=== PATIENT | female | born 1945 | race Caucasian/White ===

== ENCOUNTER → 2017-05-24 | Outpatient (CLI) | payer OTHER ==
[~2017-05-24] MED LIST: ALPR-411 PO; BNT10 PO; ENAL10TA88 PO; MELO7.5T5 PO; MOME50SP5; SERT-234 PO; TRAZ50TA35 PO; VNCLRX PO
--- NOTE | 2017-05-24 15:30 | MAMMOGRAPHY REPORT ---
BILATERAL DIGITAL SCREENING MAMMOGRAM TOMOSYNTHESIS WITH CAD: 05/24/2017 CLINICAL HISTORY: Routine screening. Patient has no complaints. TECHNIQUE: Breast tomosynthesis in addition to standard 2D mammography was performed. Current study was also evaluated with a Computer Aided Detection (CAD) system. COMPARISON: Comparison is made to exams dated: 05/22/2016 mammogram, 05/20/2015 mammogram, 05/19/2014 m ammogram, 07/20/2010 mammogram - [facility], 02/14/2009, and 01/27/2007. BREAST COMPOSITION: There are scattered areas of fibroglandular density in both breasts. FINDINGS: The parenchymal pattern is similar to prior mammograms. There are mild vascular calcifica tions and a few benign grouped calcifications in the breasts. No developing mass, architectural dist ortion or cluster of suspicious microcalcifications is seen. IMPRESSION: ACR BI-RADS CATEGORY 2: BENIGN There is no mammographic evidence of malignancy. A 1 year screening mammogram is recommended. The pa tient will receive written notification of the results. Approximately 10% of breast cancers are not detected with mammography. A negative mammographic report should not delay biopsy if a clinically suggestive mass is present. Soledad Valencia M.D. ay/:05/24/2017 13:42:47 Photographer'S Model: Layne FRENCH)(M), [facility] letter sent: Normal 1/2 BI-RADS Code: ACR BI-RADS Category 2: Benign
== END | disposition home or self-care (01) ==
LOC: C.MAMM 10:39
PROVIDERS: ATTEND Internal Medicine
DX: Z12.31 Encounter for screening mammogram for malignant neoplasm of breast (principal)

== ENCOUNTER → 2018-06-17 | Outpatient (CLI) | payer OTHER ==
--- NOTE | 2018-06-18 13:52 | MAMMOGRAPHY REPORT ---
BILATERAL DIGITAL SCREENING MAMMOGRAM TOMOSYNTHESIS WITH CAD: 06/17/2018 CLINICAL HISTORY: Routine screening. Patient has no complaints. TECHNIQUE: The study was acquired using full field digital technology and interpreted from soft copy. Breast tomosynthesis in addition to standard 2D mammography was performed. Current study was also ev aluated with a Computer Aided Detection (CAD) system. COMPARISON: Comparison is made to exams dated: 05/24/2017 mammogram, 05/22/2016 mammogram, 05/20/2015 m ammogram, 05/19/2014 mammogram, 07/20/2010 mammogram, and 08/26/2009 mammogram - [facility]. BREAST COMPOSITION: There are scattered areas of fibroglandular density in both breasts. FINDINGS: There are mild vascular calcifications in the breasts, and a few scattered benign coarse ca lcifications. Stable asymmetries in the middle one third of the left breast along the posterior nipp le line and slightly lateral to the posterior nipple line on the CC view. No suspicious mass, archite ctural distortion or cluster of microcalcifications is seen. IMPRESSION: ACR BI-RADS CATEGORY 1: NEGATIVE There is no mammographic evidence of malignancy. A 1 year screening mammogram is recommended.( 019) The patient will receive written notification of the results. Some breast cancers are not detected with mammography. A negative mammographic report should not katelyn y biopsy if a clinically suggestive mass is present. Soledad Valencia M.D. ay/:06/17/2018 22:00:38 Auditor/Quality: RT Canelo(R)(M), [facility] letter sent: Normal 1/2 BI-RADS Code: ACR BI-RADS Category 1: Negative
== END | disposition home or self-care (01) ==
LOC: C.MAMM 11:40
PROVIDERS: ATTEND Family Medicine
DX: Z12.31 Encounter for screening mammogram for malignant neoplasm of breast (principal)

== ENCOUNTER 2022-05-31 20:34 | Observation (INO) ==
[2022-05-31] MEDS ORDERED: ONDANSETRON INJ 2 MG/ML 2 ML VIAL IV STA (21:23)
--- NOTE | 2022-05-31 21:26 | ED Triage Note ---
Date of Service May 31, 2022 History of Present Illness This patient was briefly evaluated while in triage. An abbreviated physical exam was performed. This patient is a 76-year-old Female who presents to the ED for evaluation of vomiting, abdominal discomfort and constipation. Symptoms started yesterday. Physical Exam VITALS: Vitals are noted on the nurse's note and reviewed by myself. GENERAL: This is a 76-year-old female, ill-appearing, holding an emesis bucket and dry heaving. HEART: Regular rate and rhythm without murmurs gallops or rubs. LUNGS: Clear to auscultation bilaterally without wheezes, rales or rhonchi. ABDOMEN: Soft, generalized tenderness. NEURO: Patient was alert and oriented to person place and time. Initial orders for labs and / or imaging were placed and patient was placed in the waiting area until a bed is available. Please see further documentation for the full ED course.
[2022-05-31 21:46] LABS: Hematocrit (blood only) 38.5 % (34.1-44.9); Hemoglobin 13.1 g/dl (12.0-16.0); Mean Corpuscular Hemoglobin 34.7 pg (25.0-34.0); Mean Corpuscular Volume 101.9 fL (80.0-100.0); Mean Platelet Volume 9.7 fL (9.4-12.3); Platelet Count 287 K/uL (130-400); RDW Coefficient of Variation 12.1 % (11.5-14.5); RDW Standard Deviation 45.1 fL (36.4-46.3); Red Blood Count 3.78 M/uL (3.93-5.22); White Blood Count 20.32 K/ul (4.8-10.8)
[2022-05-31 22:01] LABS: Basophils # (auto) 0.05 K/uL (0-0.2); Basophils % (auto) 0.2 %; Eosinophils # (auto) 0.03 K/uL (0-0.50); Eosinophils % (auto) 0.1 %; Immature Granulocytes % (auto) 0.5 %; Lymphocytes # (auto) 0.74 K/uL (1.2-3.4); Lymphocytes % (auto) 3.6 %; Neutrophils % (auto) 92.6 %
[2022-05-31 22:08] LABS: Alanine Aminotransferase 15 U/L (7-52); Albumin Globulin Ratio 1.2 (0.9-2); Albumin Level 4.1 gm/dl (3.4-5.0); Alkaline Phosphatase 90 U/L (34-104); Anion Gap 7 (3-11); BUN Creatinine Ratio 19.5 (10-20); Bilirubin,Total 0.9 mg/dl (0.2-1.0); Blood Urea Nitrogen 17 mg/dl (6-23); Calcium 9.1 mg/dl (8.5-10.1); Carbon Dioxide 25 mmol/L (21-32); Chloride 98 mmol/L (98-107); Creatinine Clr Calc Pharmacy 50.3 ml/min; Est GFR (African American) 76.1 ml/min; Est GFR (Non-African American) 65.6 ml/min; Globulin 3.3 gm/dl (2.5-4.0); Glucose 131 mg/dl (70-99(Fasting)); Lipase 28 U/L (11-82); Sodium 130 mmol/L (136-145); Total Protein 7.4 gm/dl (6.0-8.3)
[2022-06-01] MEDS ORDERED: OPTIRAY 320 100ml IV ONE (00:22)
[2022-06-01] MEDS ORDERED: SODIUM CHLORIDE 0.9% 1000ML 1,000 ML IV ONE (01:29)
[2022-06-01] MEDS ORDERED: ACETAMINOPHEN 1,000 MG/100 ML VIAL IV STA (01:29)
--- NOTE | 2022-06-01 01:29 | Emergency Department Note ---
History of Present Illness General Chief complaint: Constipation Stated complaint: CONSTIPATION, VOMITING, NAUSEA Time Seen by Provider: 06/01/22 01:17 Source: patient Mode of arrival: ambulatory Limitations: no limitations History of Present Illness Provider complaint: Abdominal pain, constipation Onset (ago): day(s) 3 Location: abdomen Radiation: non-radiation Maximum Pain Intensity: 10 Quality: + constant Relieved By: + none Exacerbated By: + eating Associated symptoms: + loss of appetite and + nausea/vomiting; no chest pain, no fever/chills or no shortness of breath Treatments prior to arrival: other This is a 76-year-old female who presents due to concern for 3 days of constipation. Patient states she has a longstanding history of intermittent constipation and occasionally has to take medications. She states by this evening she had such discomfort and bloating from not having a bowel movement she took several [id number] medications including attempting an enema. She states by arrival here she began having bowel movements although they were loose. She denies any black or bloody stools. She states pain and bloating are slightly improved although she still feels very uncomfortable. She denies fevers, chills, however did have an episode of nausea vomiting at home prior to arrival. She denies any recent change in medications or diet. Pt seen during a time of high acuity and national emergency pandemic while wearing PPE. Home Medications Medication Instructions Recorded Confirmed Type alprazolam 1 mg tablet 0.5 mg PO HS ##0 06/12/11 06/01/22 History aspirin 81 mg tablet,delayed 81 mg PO QAM 08/20/18 06/01/22 History release (Rosemary Low Dose Aspirin) trazodone 50 mg tablet 100 mg PO HS 10/22/18 06/01/22 History bupropion HCl 300 mg 24 hr tablet, 300 mg PO DAILY 10/06/19 06/01/22 History extended release conjugated estrogens 0.625 mg/gram 0.625 mg vaginal DAILY 10/06/19 06/01/22 History vaginal cream (Premarin) losartan 25 mg tablet 50 mg PO BID 10/06/19 06/01/22 History mirabegron 50 mg tablet,extended 50 mg PO DAILY 10/06/19 06/01/22 History release 24 hr (Myrbetriq) Pataday 1 drp OPB DAILY 06/01/22 06/01/22 History Valtrex 500 mg PO DAILY 06/01/22 06/01/22 History amlodipine 5 mg tablet 5 mg PO 1XD 06/01/22 06/01/22 History atorvastatin 40 mg tablet 40 mg PO ONCE HS 06/01/22 06/01/22 History carvedilol 6.25 mg tablet 6.25 mg PO 1XD 06/01/22 06/01/22 History fluticasone propionate 50 mcg intranasal (ALT) BID 06/01/22 06/01/22 History meloxicam 15 mg tablet 15 mg PO DAILY 06/01/22 06/01/22 History montelukast 10 mg PO DAILY 06/01/22 06/01/22 History pantoprazole 40 mg tablet,delayed 40 mg PO 1XD 06/01/22 06/01/22 History release Allergies Allergy/AdvReac Type Severity Reaction Status Date / Time codeine AdvReac Unknown NAUSEA Verified 12/02/18 09:43 Past Med/Surg History Medical History (Updated 06/02/22 @ 21:38 by Margarita Andrade DO) Anxiety Colitis Depression GERD (gastroesophageal reflux disease) HTN (hypertension) Osteoarthritis Surgical History Cataract extraction status of right eye History of total abdominal hysterectomy and bilateral salpingo-oophorectomy repair of bladder History of total knee replacement right Hx of colonoscopy Hx of tubal ligation Family History Father Family history of diabetes mellitus Social History Smoking Status: Never smoker Second Hand Exposure: No; Hx Alcohol Use: No Hx Substance Use: No Preferred Language: Wolof Communication Ability: Effective 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: No Beliefs That Will Affect Care: None Current Living Situation: Alone Feels Safe at Home: Yes Safety Concerns: Feels Safe At This Time Assistive Devices: Glasses Review of Systems A total of 10 systems reviewed and were otherwise negative All systems reviewed & are unremarkable except as noted in HPI & below Physical Exam Vital Signs Vital Signs - 24 hr 05/31/22 21:20 06/01/22 01:12 06/01/22 02:31 Temperature 36.8 C Temperature Source Temporal Artery Scan Pulse Rate 84 Pulse Rate [Finger] 82 74 Respiratory Rate 20 20 16 Respiratory Effort / Characteristics Non-Labored Spontaneous Non-Labored Spontaneous Respiratory Depth Normal Normal Respiratory Pattern Regular Blood Pressure 126/65 Blood Pressure [Right Arm] 165/93 H 146/88 H Blood Pressure Mean 85 Blood Pressure Mean [Right Arm] 117 107 Blood Pressure Position Sitting Pulse Oximetry 97 93 95 Oxygen Delivery Method Room Air Room Air Room Air Sepsis Recent Fever Within 48 Hours No Sepsis New/Unexplained Change in Mental Status N/A Sepsis Action Taken by Nursing No Action Required GENERAL: alert, well appearing, well nourished, no distress, non-toxic EYE EXAM: normal conjunctiva, PERRL and EOM's grossly intact OROPHARYNX: no exudate, no erythema, lips, buccal mucosa, and tongue normal and mucous membranes are moist NECK: supple, no nuchal rigidity, no adenopathy, non-tender LUNGS: Clear to auscultation. Normal chest wall mechanics, no w/r/r HEART: no murmurs, S1 normal and S2 normal ABDOMEN: abdomen soft, mild lower abdominal tenderness with palpation, normo- active bowel sounds, no masses, no rebound or guarding. Dull to percussion. BACK: Back is symmetrical on inspection and there is no deformity, no midline tenderness, no CVA tenderness. SKIN: no rashes and no bruising UPPER EXTREMITIES: upper extremities are grossly normal. FROM, nml pulses b/l. LOWER EXTREMITIES: No pitting edema. FROM, nml pulses b/l. NEURO EXAM: Normal sensorium, cranial nerves II-XII grossly intact, normal speech, no gross weakness of arms, no gross weakness of legs. Gross sensation intact. Course Administered Medications Alprazolam (Alprazolam 0.5 Mg Tablet) 0.5 mg PO BID PRN PRN Reason: Anxiety Stop: 07/01/22 06:53 Last Admin: 06/02/22 21:21 Dose: 0.5 mg Documented By: Admin: 06/01/22 22:10 Dose: 0.5 mg Documented By: RONEN Amlodipine Besylate (Amlodipine Besylate 5 Mg Tab) 5 mg PO QAM [facility] Stop: 07/01/22 08:59 Last Admin: 06/02/22 08:59 Dose: 5 mg Documented By: Admin: 06/01/22 09:24 Dose: 5 mg Documented By: OSCAR Aspirin (Aspirin 81 Mg Ectab) [facility] [place] Stop: 07/01/22 08:59 Last Admin: 06/02/22 09:10 Dose: 81 mg Documented By: Admin: 06/01/22 09:50 Dose: 81 mg Documented By: OSCAR Atorvastatin Calcium (Atorvastatin 40 Mg Tab) 40 mg PO QAM [facility] Stop: 07/01/22 08:59 Last Admin: 06/02/22 08:59 Dose: 40 mg Documented By: Admin: 06/01/22 09:47 Dose: 40 mg Documented By: OSCAR Bupropion HCl (Bupropion Xl 300 Mg Tabcr) [facility] [place] Stop: 07/01/22 08:59 Last Admin: 06/02/22 09:00 Dose: 300 mg Documented By: Admin: 06/01/22 09:18 Dose: 300 mg Documented By: OSCAR Carvedilol (Carvedilol 6.25 Mg Tab) 6.25 mg PO BID [facility] Stop: 07/01/22 08:59 Last Admin: 06/02/22 21:22 Dose: 6.25 mg Documented By: Admin: 06/02/22 09:00 Dose: 6.25 mg Documented By: Admin: 06/01/22 22:02 Dose: 6.25 mg Documented By: Admin: 06/01/22 09:17 Dose: 6.25 mg Documented By: OSCAR Ciprofloxacin (Ciprofloxacin 500 Mg Tab) 500 mg PO BID [facility] Stop: 06/12/22 20:59 Last Admin: 06/02/22 21:22 Dose: 500 mg Documented By: RONEN Enoxaparin Sodium (Enoxaparin Inj 40 Mg/0.4 Ml Syr) 40 [facility]Q [facility] [place] Stop: 07/01/22 08:59 Last Admin: 06/02/22 09:00 Dose: 40 mg Documented By: Admin: 06/01/22 09:17 Dose: 40 mg Documented By: OSCAR Fluticasone Propionate (Fluticasone Propionate Na Spr 16 Gm Btl) 2 sprays NA DAILY [facility] Stop: 07/01/22 08:59 Last Admin: 06/02/22 09:00 Dose: 2 sprays Documented By: Admin: 06/01/22 09:19 Dose: 2 sprays Documented By: OSCAR Losartan Potassium (Losartan Potassium 50 Mg Tab) 50 mg PO BID [facility] Stop: 07/01/22 08:59 Last Admin: 06/02/22 21:23 Dose: 50 mg Documented By: Admin: 06/02/22 09:00 Dose: 50 mg Documented By: Admin: 06/01/22 22:02 Dose: 50 mg Documented By: Admin: 06/01/22 09:18 Dose: 50 mg Documented By: OSCAR Metronidazole (Metronidazole 500 Mg Tab) 500 mg PO Q8 EZ Stop: 06/12/22 12:29 Last Admin: 06/02/22 21:24 Dose: 500 mg Documented By: Admin: 06/02/22 12:50 Dose: 500 mg Documented By: PRESTON Mirabegron (Mirabegron Er 25 Mg Tab) 50 mg PO DAILY EZ Stop: 07/01/22 08:59 Last Admin: 06/02/22 09:00 Dose: 50 mg Documented By: Admin: 06/01/22 09:18 Dose: 50 mg Documented By: OSCAR Miscellaneous (Pataday: Order Awaiting Action) 1 each N/A QS EZ Stop: 07/01/22 07:59 Last Admin: 06/02/22 15:26 Dose: Not Given Documented By: Admin: 06/02/22 07:39 Dose: Not Given Documented By: Admin: 06/02/22 00:17 Dose: Not Given Documented By: Admin: 06/01/22 16:41 Dose: Not Given Documented By: Admin: 06/01/22 07:44 Dose: Not Given Documented By: OSCAR Montelukast Sodium (Montelukast Sodium 10 Mg Tablet) 10 mg PO DAILY EZ Stop: 07/02/22 08:59 Last Admin: 06/02/22 09:05 Dose: 10 mg Documented By: PRESTON Pantoprazole Sodium (Pantoprazole 40 Mg Tab) 40 mg PO DAILY EZ Stop: 07/01/22 08:59 Last Admin: 06/02/22 09:00 Dose: 40 mg Documented By: Admin: 06/01/22 09:24 Dose: 40 mg Documented By: OSCAR Petrolatum (Butt Paste (Zinc Oxide 16%) 171 Appln/57 Gm Jar) 1 appln EXT BID EZ Stop: 07/02/22 12:14 Last Admin: 06/02/22 21:24 Dose: 1 appln Documented By: Admin: 06/02/22 12:50 Dose: 1 appln Documented By: PRESTON Trazodone HCl (Trazodone Hcl 100 Mg Tab) 100 mg PO HS EZ Stop: 07/01/22 20:59 Last Admin: 06/02/22 21:24 Dose: 100 mg Documented By: Admin: 06/01/22 22:03 Dose: 100 mg Documented By: RONEN Valacyclovir HCl (Valacyclovir Hcl 500 Mg Tablet) 500 mg PO DAILY EZ Stop: 07/01/22 08:59 Last Admin: 06/02/22 09:00 Dose: 500 mg Documented By: Admin: 06/01/22 09:18 Dose: 500 mg Documented By: NMS Discontinued Medications Sodium Chloride (Nss 1000ml) 1,000 mls @ 999 mls/hr IV .Q1H1M ONE Stop: 06/01/22 02:29 Last Infusion: 06/01/22 03:22 Dose: 0 mls/hr Documented By: Admin: 06/01/22 01:38 Dose: 999 mls/hr Documented By: CHANCE Acetaminophen (Ofirmev) 1,000 mg in 100 mls @ 400 mls/hr IV NOW STA Stop: 06/01/22 01:43 Last Infusion: 06/01/22 02:26 Dose: 0 mls/hr Documented By: Admin: 06/01/22 01:38 Dose: 400 mls/hr Documented By: CHANCE Piperacillin Sod/Tazobactam Sod (Zosyn) 4.5 gm in 120 mls @ 240 mls/hr IV NOW ONE Stop: 06/01/22 04:16 Last Infusion: 06/01/22 04:42 Dose: 0 mls/hr Documented By: Admin: 06/01/22 03:54 Dose: 240 mls/hr Documented By: CHANCE Metronidazole (Flagyl) 500 mg in 100 mls @ 100 mls/hr IV NOW STA Stop: 06/01/22 05:32 Last Infusion: 06/01/22 06:19 Dose: 0 mls/hr Documented By: Admin: 06/01/22 05:12 Dose: 100 mls/hr Documented By: CHANCE Lactated Ringer's (Lr) 1,000 mls @ 60 mls/hr IV .[id number] STA Stop: 06/01/22 21:29 Last Infusion: 06/01/22 09:18 Dose: 0 mls/hr Documented By: Admin: 06/01/22 05:12 Dose: 60 mls/hr Documented By: CHANCE Piperacillin Sod/Tazobactam (Sod 3.375 gm/ Dextrose) 115 mls @ 28.75 mls/hr IV Q8H EZ; Protocol Stop: 06/11/22 08:59 Last Infusion: 06/02/22 12:32 Dose: 0 mls/hr Documented By: Admin: 06/02/22 08:59 Dose: 28.8 mls/hr Documented By: Infusion: 06/02/22 05:03 Dose: 0 mls/hr Documented By: Admin: 06/02/22 01:03 Dose: 28.8 mls/hr Documented By: Infusion: 06/01/22 22:04 Dose: 0 mls/hr Documented By: Admin: 06/01/22 18:10 Dose: 28.8 mls/hr Documented By: Infusion: 06/01/22 13:47 Dose: 0 mls/hr Documented By: Admin: 06/01/22 09:18 Dose: 28.8 mls/hr Documented By: OSCAR Ioversol (Optiray 320 100ml) 100 ml IV ONCE ONE Stop: 06/01/22 00:23 Last Admin: 06/01/22 00:23 Dose: 93 ml Documented By: NORRIS Montelukast Sodium (Montelukast Sodium 10 Mg Tablet) 10 mg PO HS EZ Stop: 07/01/22 20:59 Last Admin: 06/01/22 22:03 Dose: Not Given Documented By: RONEN Ondansetron HCl (Ondansetron Inj 2 Mg/Ml 2 Ml Vial) 4 mg IV NOW STA Stop: 05/31/22 21:24 Last Admin: 05/31/22 21:41 Dose: 4 mg Documented By: GHADA Medical Decision Making Differential Diagnosis Differential diagnoses includes but is not limited to gastritis, peptic ulcer disease, GERD, gallbladder disease, pancreatitis, small bowel obstruction, acute coronary syndrome, pericarditis, ischemic bowel, irritable bowel disease, irritable bowel syndrome, appendicitis, diverticulitis, malignancy, hernia, urinary tract infection, torsion, [/ectopic (if female)], perforation, trauma, infectious. Medical Records Attestation: I reviewed the patient's medical records. Home Medications Current Medication List: was personally reviewed by me Laboratory Data Attestation: I reviewed the patient's lab results. Result diagrams: 06/02/22 06:34 06/02/22 06:34 Lab Results 05/31/22 05/31/22 06/01/22 Range/Units 21:39 21:39 00:58 WBC 20.32 H (4.8-10.8) K/ul RBC 3.78 L (3.93-5.22) M/uL Hgb 13.1 (12.0-16.0) g/dl Hct 38.5 (34.1-44.9) % MCV 101.9 H (80.0-100.0) fL MCH 34.7 H (25.0-34.0) pg MCHC 34.0 (32.0-36.0) g/dL RDW Std Deviation 45.1 (36.4-46.3) fL RDW Coeff of Hollis 12.1 (11.5-14.5) % Plt Count 287 (130-400) K/uL MPV 9.7 (9.4-12.3) fL Immature Gran % (Auto) 0.5 % Neut % (Auto) 92.6 % Lymph % (Auto) 3.6 % [place] % (Auto) 3.0 % Eos % (Auto) 0.1 % Baso % (Auto) 0.2 % Neut # (Auto) 18.80 H (1.4-6.5) K/uL Lymph # (Auto) 0.74 L (1.2-3.4) K/uL [place] # (Auto) 0.60 (0.24-0.82) K/uL Eos # (Auto) 0.03 (0-0.50) K/uL Baso # (Auto) 0.05 (0-0.2) K/uL Immature Gran # (Auto) 0.10 H (0.00-0.02) K/uL Sodium 130 L (136-145) mmol/L Potassium TNP 3.7 Chloride 98 (98-107) mmol/L Carbon Dioxide 25 (21-32) mmol/L Anion Gap 7 (3-11) BUN 17 (6-23) mg/dl Creatinine 0.87 (0.6-1.2) mg/dl Est Cr Clr Drug Dosing 50.3 ml/min Est GFR ( Amer) 76.1 ml/min Est GFR (Non-Af Amer) 65.6 ml/min BUN/Creatinine Ratio 19.5 (10-20) Glucose 131 H (70-99(Fasting)) mg/dl Calcium 9.1 (8.5-10.1) mg/dl Magnesium 2.2 (1.7-2.4) mg/dl Total Bilirubin 0.9 (0.2-1.0) mg/dl AST TNP 18 ALT 15 (7-52) U/L Alkaline Phosphatase 90 (34-104) U/L Total Protein 7.4 (6.0-8.3) gm/dl Albumin 4.1 (3.4-5.0) gm/dl Globulin 3.3 (2.5-4.0) gm/dl Albumin/Globulin Ratio 1.2 (0.9-2) Lipase 28 (11-82) U/L Procalcitonin (0-0.5) ng/ml Urine Color Urine Appearance (Clear) Urine pH (4.5-7.5) Ur Specific [place] (1.000-1.030) Urine Protein (Negative) Urine Glucose (UA) (Negative) Urine Ketones (Negative) Urine Blood (Negative) Urine Nitrite (Negative) Urine Bilirubin (Negative) Urine Urobilinogen (Negative) Ur Leukocyte Esterase (Negative) SARS-CoV-2, RNA, NAAT (NEGATIVE) 06/01/22 06/01/22 06/01/22 Range/Units 01:58 02:55 02:55 WBC 20.85 H (4.8-10.8) K/ul RBC 3.65 L (3.93-5.22) M/uL Hgb 12.6 (12.0-16.0) g/dl Hct 37.4 (34.1-44.9) % MCV 102.5 H (80.0-100.0) fL MCH 34.5 H (25.0-34.0) pg MCHC 33.7 (32.0-36.0) g/dL RDW Std Deviation 45.9 (36.4-46.3) fL RDW Coeff of Hollis 12.2 (11.5-14.5) % Plt Count 282 (130-400) K/uL MPV 10.1 (9.4-12.3) fL Immature Gran % (Auto) 0.8 % Neut % (Auto) 93.3 % Lymph % (Auto) 2.3 % [place] % (Auto) 3.4 % Eos % (Auto) 0.0 % Baso % (Auto) 0.2 % Neut # (Auto) 19.48 H (1.4-6.5) K/uL Lymph # (Auto) 0.47 L (1.2-3.4) K/uL [place] # (Auto) 0.70 (0.24-0.82) K/uL Eos # (Auto) 0.00 (0-0.50) K/uL Baso # (Auto) 0.04 (0-0.2) K/uL Immature Gran # (Auto) 0.16 H (0.00-0.02) K/uL Sodium (136-145) mmol/L Potassium Chloride (98-107) mmol/L Carbon Dioxide (21-32) mmol/L Anion Gap (3-11) BUN (6-23) mg/dl Creatinine (0.6-1.2) mg/dl Est Cr Clr Drug Dosing ml/min Est GFR ( Amer) ml/min Est GFR (Non-Af Amer) ml/min BUN/Creatinine Ratio (10-20) Glucose (70-99(Fasting)) mg/dl Calcium (8.5-10.1) mg/dl Magnesium (1.7-2.4) mg/dl Total Bilirubin (0.2-1.0) mg/dl AST ALT (7-52) U/L Alkaline Phosphatase (34-104) U/L Total Protein (6.0-8.3) gm/dl Albumin (3.4-5.0) gm/dl Globulin (2.5-4.0) gm/dl Albumin/Globulin Ratio (0.9-2) Lipase (11-82) U/L Procalcitonin 0.86 H (0-0.5) ng/ml Urine Color Dark Yellow Urine Appearance Clear (Clear) Urine pH 6.0 (4.5-7.5) Ur Specific [place] > 1.045 H (1.000-1.030) Urine Protein Negative (Negative) Urine Glucose (UA) Negative (Negative) Urine Ketones Trace H (Negative) Urine Blood Negative (Negative) Urine Nitrite Negative (Negative) Urine Bilirubin 1+ H (Negative) Urine Urobilinogen Negative (Negative) Ur Leukocyte Esterase Negative (Negative) SARS-CoV-2, RNA, NAAT (NEGATIVE) 06/01/22 Range/Units 04:43 WBC (4.8-10.8) K/ul RBC (3.93-5.22) M/uL Hgb (12.0-16.0) g/dl Hct (34.1-44.9) % MCV (80.0-100.0) fL MCH (25.0-34.0) pg MCHC (32.0-36.0) g/dL RDW Std Deviation (36.4-46.3) fL RDW Coeff of Hollis (11.5-14.5) % Plt Count (130-400) K/uL MPV (9.4-12.3) fL Immature Gran % (Auto) % Neut % (Auto) % Lymph % (Auto) % [place] % (Auto) % Eos % (Auto) % Baso % (Auto) % Neut # (Auto) (1.4-6.5) K/uL Lymph # (Auto) (1.2-3.4) K/uL [place] # (Auto) (0.24-0.82) K/uL Eos # (Auto) (0-0.50) K/uL Baso # (Auto) (0-0.2) K/uL Immature Gran # (Auto) (0.00-0.02) K/uL Sodium (136-145) mmol/L Potassium Chloride (98-107) mmol/L Carbon Dioxide (21-32) mmol/L Anion Gap (3-11) BUN (6-23) mg/dl Creatinine (0.6-1.2) mg/dl Est Cr Clr Drug Dosing ml/min Est GFR ( Amer) ml/min Est GFR (Non-Af Amer) ml/min BUN/Creatinine Ratio (10-20) Glucose (70-99(Fasting)) mg/dl Calcium (8.5-10.1) mg/dl Magnesium (1.7-2.4) mg/dl Total Bilirubin (0.2-1.0) mg/dl AST ALT (7-52) U/L Alkaline Phosphatase (34-104) U/L Total Protein (6.0-8.3) gm/dl Albumin (3.4-5.0) gm/dl Globulin (2.5-4.0) gm/dl Albumin/Globulin Ratio (0.9-2) Lipase (11-82) U/L Procalcitonin (0-0.5) ng/ml Urine Color Urine Appearance (Clear) Urine pH (4.5-7.5) Ur Specific [place] (1.000-1.030) Urine Protein (Negative) Urine Glucose (UA) (Negative) Urine Ketones (Negative) Urine Blood (Negative) Urine Nitrite (Negative) Urine Bilirubin (Negative) Urine Urobilinogen (Negative) Ur Leukocyte Esterase (Negative) SARS-CoV-2, RNA, NAAT NEGATIVE (NEGATIVE) Imaging Data Radiologist's Impression: CT abdomen and pelvis with contrast: Comparison: CT abdomen and pelvis 10/28/2016. Constipation. Wall thickening and pericolic fat stranding in the left colon suggesting colitis. Sigmoid diverticulosis. Inflammatory changes in this region are favored to be due to left hemicolitis, but a component of diverticulitis cannot be completely excluded. No bowel obstruction. Appendix not identified. Liver, gallbladder, spleen, pancreas, adrenal glands are unremarkable. Symmetric renal enhancement. No hydronephrosis. Right kidney cyst. No aortic aneurysm. Hysterectomy. Normal bladder. No acute osseous findings. Radiologist: Darleen Oscar MD ECG Data Attestation: I personally reviewed and interpreted this ECG as follows: Indication: + abdominal pain Rate (beats per minute): 78 Rhythm: + normal sinus ECG Intervals/blocks: + Normal QRS and + Normal QT ECG [place]: + Normal ECG ST segments: + Nonspecific ST abnormalities MDM Narrative An order was placed for continuous cardiac monitoring. The monitor shows a rate of _77_ with _normal sinus_ rhythm. THis is a 76 yo female who presents with abdominal pain, n/v and diarrhea. She denies sick contacts or change in diet. Denied concern for food borne illness. No med change. She has previously had c.diff but no recent antibiotics. Labs sent prior to my evaluation by nursing staff which revealed significant leukocytosis. Initially thought to be reactive from vomiting and diarrhea, patient fently rehydrated with IVF, given meds for nausea and pain. CT scan revealed colitis and possible evolving diverticulitis. Repeat CBC and procal added which revealed persistent leukocytosis and elevated procal. Patient given IV zosyn. We discussed concern for findings on labs and imaging and unclear etiology at this time. Stool culture pending. Patient made aware of all results and verbalized understanding and was in agreement with the plan. CAse discussed with the hospitalist. Patient re-examined several times, no worsening pain, abd soft with mild lower abd tenderness with palpation. No evidence of peritonitis. Impression & Plan Abdominal pain, Colitis, Diverticulitis, Leukocytosis Discharge Plan Visit Data Chief Complaint: Constipation Stated Complaint: CONSTIPATION, VOMITING, NAUSEA ED Provider: Margarita Andrade Discharge Problem: Abdominal pain, Colitis, Diverticulitis, Leukocytosis Patient Disposition: Admitted As Inpatient Discharge Instructions Interventions: ED Discharge Assessment Last Done: 06/01/22 06:58
[2022-06-01 01:31] LABS: Potassium 3.7 mmol/L (3.5-5.1)
[2022-06-01 02:15] LABS: Appearance Urine Clear (Clear); Blood Urine Negative (Negative); Color Urine Dark Yellow; Glucose Urine UA Negative (Negative); Ketones Urine Trace (Negative); Leukocyte Esterase Urine Negative (Negative); Nitrite Urine Negative (Negative); Protein Urine Negative (Negative); Specific Gravity Urine > 1.045 (1.000-1.030); Urobilinogen Urine Negative (Negative)
[2022-06-01 02:22] LABS: Bilirubin Urine 1+ (Negative)
[2022-06-01 03:18] LABS: Hematocrit (blood only) 37.4 % (34.1-44.9); Hemoglobin 12.6 g/dl (12.0-16.0); Mean Corpuscular Hemoglobin 34.5 pg (25.0-34.0); Mean Corpuscular Hgb Conc 33.7 g/dL (32.0-36.0); Mean Corpuscular Volume 102.5 fL (80.0-100.0); Mean Platelet Volume 10.1 fL (9.4-12.3); Platelet Count 282 K/uL (130-400); RDW Coefficient of Variation 12.2 % (11.5-14.5); RDW Standard Deviation 45.9 fL (36.4-46.3); Red Blood Count 3.65 M/uL (3.93-5.22); White Blood Count 20.85 K/ul (4.8-10.8)
[2022-06-01 03:44] LABS: Basophils # (auto) 0.04 K/uL (0-0.2); Basophils % (auto) 0.2 %; Immature Granulocytes # (auto) 0.16 K/uL (0.00-0.02); Immature Granulocytes % (auto) 0.8 %; Lymphocytes # (auto) 0.47 K/uL (1.2-3.4); Lymphocytes % (auto) 2.3 %; Monocytes % (auto) 3.4 %; Neutrophils # (auto) 19.48 K/uL (1.4-6.5); Neutrophils % (auto) 93.3 %
[2022-06-01] MEDS ORDERED: PIPERACILLIN/TAZOBACTAM 4.5 GM/120 ML BAG IV ONE (03:47)
[2022-06-01] MEDS ORDERED: metroNIDAZOLE 500 MG/100 ML BAG IV STA (04:33)
--- NOTE | 2022-06-01 04:43 | History & Physical Report ---
Date of Service June 01, 2022 Assessment & Plan (1) Abdominal pain: Plan: Colitis versus diverticulitis on initial CT read Rule out recurrent C. difficile given antibiotic intake history Possible sepsis given elevated procalcitonin hypertension, stable hyperlipidemia on statin Rx GERD, stable on regimen anxiety/mood disorder, at baseline hypothyroidism, euthyroid as of recent outpatient TSH prediabetes, outpatient hemoglobin A1c of 5.8 last December 2021 GMF CS. Zosyn Bowel rest Follow CT abdomen pelvis official read GI consult if diverticulitis found on official CT read stool C. difficile Flagyl 1 dose for now for presumptive C. difficile given leukocytosis; oral vancomycin if C. difficile positive DVT prophylaxis. Lovenox subcu Full code Text document was generated using [employer] voice recognition software. It may contain grammatical or spelling errors. Kindly contact undersigned for clarification of any documentation item in question. History of Present Illness Chief Complaint: Abdominal pain Primary Care Provider: Raman Elder DO History obtained from patient and records. Medical history significant for hypertension, hyperlipidemia IBS, GERD, anxiety/mood disorders, hypothyroidism, HSV on Valtrex prophylaxis, diverticulosis, history C. difficile, prediabetes. 3 days history of achy lower abdominal pain more on the right associated with nausea, emesis. No fever, no chills. Initial constipation followed by watery stools after laxative intake. Patient denies chest pain, SOB. Recent Bactrim course for UTI 2 months ago. IV Zosyn administered at the ER. 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 Allergies Allergy/AdvReac Type Severity Reaction Status Date / Time codeine AdvReac Unknown NAUSEA Verified 12/02/18 09:43 Home Medications Medication Instructions Recorded Confirmed Type alprazolam 1 mg tablet 0.5 mg PO HS ##0 06/12/11 10/06/19 History aspirin 81 mg tablet,delayed 81 mg PO QAM 08/20/18 10/06/19 History release (Rosemary Low Dose Aspirin) trazodone 50 mg tablet 100 mg PO HS 10/22/18 10/06/19 History bupropion HCl 300 mg 24 hr tablet, 300 mg PO DAILY 10/06/19 10/06/19 History extended release conjugated estrogens 0.625 mg/gram 0.625 mg vaginal DAILY 10/06/19 10/06/19 History vaginal cream (Premarin) losartan 25 mg tablet 50 mg PO BID 10/06/19 10/06/19 History mirabegron 50 mg tablet,extended 50 mg PO DAILY 10/06/19 10/06/19 History release 24 hr (Myrbetriq) Pataday 1 drp OPB DAILY 06/01/22 06/01/22 History Valtrex 500 mg PO DAILY 06/01/22 06/01/22 History amlodipine 5 mg tablet mg 06/01/22 History atorvastatin 40 mg tablet mg 06/01/22 History carvedilol 6.25 mg tablet mg 06/01/22 History fluticasone propionate 06/01/22 History meloxicam 15 mg tablet mg PO DAILY 06/01/22 History montelukast 10 mg PO 06/01/22 History pantoprazole 40 mg tablet,delayed mg PO 06/01/22 History release Past Med/Surg History Medical History (Updated 06/01/22 @ 04:19 by Margarita Andrade DO) Anxiety Colitis Depression GERD (gastroesophageal reflux disease) HTN (hypertension) Osteoarthritis Surgical History Cataract extraction status of right eye History of total abdominal hysterectomy and bilateral salpingo-oophorectomy repair of bladder History of total knee replacement right Hx of colonoscopy Hx of tubal ligation Family History Father Family history of diabetes mellitus Social History Smoking Status: Never smoker Second Hand Exposure: No; Hx Alcohol Use: No Hx Substance Use: No Preferred Language: Tanzanian Communication Ability: Effective Immigration Specialist Required: No Beliefs That Will Affect Care: None Current Living Situation: Alone Feels Safe at Home: Yes Assistive Devices: Glasses Review of Systems Review of Systems: As per HPI, all other systems reviewed and negative Physical Exam Physical Exam: GENERAL: Comfortable, slightly anxious, pleasant, no respiratory distress SKIN: Normal color, warm HEENT: [place] palpebral conjunctivae, no ptosis, dry buccal mucosa NECK : Supple, no tenderness CHEST : CTA, no tenderness HEART : RRR, no obvious murmurs ABDOMEN: Some distention, epigastric tenderness EXTREMITIES : Minimal LE swelling, no LE tenderness, no other conspicuous deformities noted NEUROLOGIC : Coherent, no facial asymmetry, no other gross focality Results & Data Results & Data ([facility]) Vital Signs (Past 12 Hours) Vital Signs Temp Pulse Pulse Resp BP BP Pulse Ox 06/01/22 02:31 74 16 146/88 H 95 06/01/22 01:12 82 20 165/93 H 93 05/31/22 21:20 36.8 C 84 20 126/65 97 O2 Del Method 06/01/22 02:31 Room Air 06/01/22 01:12 Room Air 05/31/22 21:20 Room Air Laboratory Results Laboratory Results WBC 20.85 K/ul (4.8-10.8) H 06/01/22 02:55 RBC 3.65 M/uL (3.93-5.22) L 06/01/22 02:55 Hgb 12.6 g/dl (12.0-16.0) 06/01/22 02:55 Hct 37.4 % (34.1-44.9) 06/01/22 02:55 MCV 102.5 fL (80.0-100.0) H 06/01/22 02:55 MCH 34.5 pg (25.0-34.0) H 06/01/22 02:55 MCHC 33.7 g/dL (32.0-36.0) 06/01/22 02:55 RDW Std Deviation 45.9 fL (36.4-46.3) 06/01/22 02:55 RDW Coeff of [place] 12.2 % (11.5-14.5) 06/01/22 02:55 Plt Count 282 K/uL (130-400) 06/01/22 02:55 MPV 10.1 fL (9.4-12.3) 06/01/22 02:55 Immature Gran % (Auto) 0.8 % 06/01/22 02:55 Neut % (Auto) 93.3 % 06/01/22 02:55 Lymph % (Auto) 2.3 % 06/01/22 02:55 [place] % (Auto) 3.4 % 06/01/22 02:55 Eos % (Auto) 0.0 % 06/01/22 02:55 Baso % (Auto) 0.2 % 06/01/22 02:55 Neut # (Auto) 19.48 K/uL (1.4-6.5) H 06/01/22 02:55 Lymph # (Auto) 0.47 K/uL (1.2-3.4) L 06/01/22 02:55 [place] # (Auto) 0.70 K/uL (0.24-0.82) 06/01/22 02:55 Eos # (Auto) 0.00 K/uL (0-0.50) 06/01/22 02:55 Baso # (Auto) 0.04 K/uL (0-0.2) 06/01/22 02:55 Immature Gran # (Auto) 0.16 K/uL (0.00-0.02) H 06/01/22 02:55 Sodium 130 mmol/L (136-145) L 05/31/22 21:39 Potassium 3.7 mmol/L (3.5-5.1) 06/01/22 00:58 Chloride 98 mmol/L (98-107) 05/31/22 21:39 Carbon Dioxide 25 mmol/L (21-32) 05/31/22 21:39 Anion Gap 7 (3-11) 05/31/22 21:39 BUN 17 mg/dl (6-23) 05/31/22 21:39 Creatinine 0.87 mg/dl (0.6-1.2) 05/31/22 21:39 Est Cr Clr Drug Dosing 50.3 ml/min 05/31/22 21:39 Est GFR ( Amer) 76.1 ml/min 05/31/22 21:39 Est GFR (Non-Af Amer) 65.6 ml/min 05/31/22 21:39 BUN/Creatinine Ratio 19.5 (10-20) 05/31/22 21:39 Glucose 131 mg/dl (70-99(Fasting)) H 05/31/22 21:39 Calcium 9.1 mg/dl (8.5-10.1) 05/31/22 21:39 Total Bilirubin 0.9 mg/dl (0.2-1.0) 05/31/22 21:39 AST 18 U/L (13-39) 06/01/22 00:58 ALT 15 U/L (7-52) 05/31/22 21:39 Alkaline Phosphatase 90 U/L (34-104) 05/31/22 21:39 Total Protein 7.4 gm/dl (6.0-8.3) 05/31/22 21:39 Albumin 4.1 gm/dl (3.4-5.0) 05/31/22 21:39 Globulin 3.3 gm/dl (2.5-4.0) 05/31/22 21:39 Albumin/Globulin Ratio 1.2 (0.9-2) 05/31/22 21:39 Lipase 28 U/L (11-82) 05/31/22 21:39 Procalcitonin 0.86 ng/ml (0-0.5) H 06/01/22 02:55 Urine Color Dark Yellow 06/01/22 01:58 Urine Appearance Clear (Clear) 06/01/22 01:58 Urine pH 6.0 (4.5-7.5) 06/01/22 01:58 Ur Specific [place] > 1.045 (1.000-1.030) H 06/01/22 01:58 Urine Protein Negative (Negative) 06/01/22 01:58 Urine Glucose (UA) Negative (Negative) 06/01/22 01:58 Urine Ketones Trace (Negative) H 06/01/22 01:58 Urine Blood Negative (Negative) 06/01/22 01:58 Urine Nitrite Negative (Negative) 06/01/22 01:58 Urine Bilirubin 1+ (Negative) H 06/01/22 01:58 Urine Urobilinogen Negative (Negative) 06/01/22 01:58 Ur Leukocyte Esterase Negative (Negative) 06/01/22 01:[address] abdomen pelvis initial read: Constipation. Wall thickening and pericolic fat stranding in the left colon suggesting colitis. Sigmoid diverticulosis. Inflammatorychanges in this region are favored to be due to left flower-colitis, but a component of diverticulitis cannot be completelyexcluded. No bowel obstruction. Appendix not identified. Liver, gallbladder, spleen, pancreas, adrenal glands are unremarkable. Symmetric renal enhancement. No hydronephrosis. Right kidneycyst. No aortic aneurysm. Hysterectomy. Normal bladder. No acute osseous findings. EKG as per my interpretation : Rate 80, NSR, normal axis, T wave abnormalities lateral leads
[2022-06-01] MEDS ORDERED: LACTATED RINGER'S 1,000 ML IV STA (04:50)
[2022-06-01 05:42] LABS: Magnesium 2.2 mg/dl (1.7-2.4)
[2022-06-01 06:19] LABS: Hematocrit (blood only) 37.2 % (34.1-44.9); Hemoglobin 12.9 g/dl (12.0-16.0); Mean Corpuscular Hemoglobin 34.3 pg (25.0-34.0); Mean Corpuscular Hgb Conc 34.7 g/dL (32.0-36.0); Mean Corpuscular Volume 98.9 fL (80.0-100.0); Mean Platelet Volume 9.9 fL (9.4-12.3); Platelet Count 276 K/uL (130-400); RDW Coefficient of Variation 12.1 % (11.5-14.5); RDW Standard Deviation 43.9 fL (36.4-46.3); Red Blood Count 3.76 M/uL (3.93-5.22); White Blood Count 19.57 K/ul (4.8-10.8)
[2022-06-01 06:49] LABS: Basophils # (auto) 0.05 K/uL (0-0.2); Basophils % (auto) 0.3 %; Eosinophils # (auto) 0.05 K/uL (0-0.50); Eosinophils % (auto) 0.3 %; Immature Granulocytes # (auto) 0.12 K/uL (0.00-0.02); Immature Granulocytes % (auto) 0.6 %; Lymphocytes % (auto) 4.6 %; Monocytes # (auto) 0.77 K/uL (0.24-0.82); Monocytes % (auto) 3.9 %; Neutrophils # (auto) 17.68 K/uL (1.4-6.5); Neutrophils % (auto) 90.3 %
[2022-06-01 06:54] LABS: BUN Creatinine Ratio 18.1 (10-20); Calcium 8.3 mg/dl (8.5-10.1); Creatinine Clr Calc Pharmacy 46.5 ml/min; Est GFR (African American) 69.3 ml/min; Est GFR (Non-African American) 59.8 ml/min; Potassium 3.8 mmol/L (3.5-5.1)
[2022-06-01] MEDS ORDERED: PROMETHAZINE HCL 12.5 MG in SODIUM CHLORIDE 0.9% 50 ML IV PRN (06:54)
[2022-06-01] MEDS ORDERED: oxyCODONE HCL IR 5 MG TAB (IMMEDIATE RELEASE) PO PRN (06:54)
[2022-06-01] MEDS ORDERED: ACETAMINOPHEN 325 MG TAB PO PRN (06:54)
[2022-06-01] MEDS ORDERED: KETOROLAC TROMETHAMINE 15 MG/ML VIAL IV PRN (06:54)
--- NOTE | 2022-06-01 07:50 | CT Scan Report ---
ABDOMEN AND PELVIS CT WITH IV CONTRAST CT DOSE: 292.73 mGy.cm HISTORY: Generalized abdominal pain. Vomiting. TECHNIQUE: Multiaxial CT images of the abdomen and pelvis were performed following the use of intrave nous contrast. A dose lowering technique was utilized adhering to the principles of ALARA. COMPARISON STUDY: Abdomen and pelvis CT 10/28/2016. FINDINGS: The lung bases are clear. No pneumoperitoneum. No pneumatosis. No fractures within the visu alized osseous structures. The heart is borderline enlarged. A 3 mm hypodense lesion within the right hepatic lobe. This is technically too small to characterize. Stable subtle 1.2 cm hypodense focus wi thin the liver adjacent to the IVC. This could represent focal fat or hemangioma. The main portal vei n is patent. The gallbladder, pancreas, spleen, adrenal glands, and left kidney are unremarkable. The re are few subcentimeter hypodense lesions within the right kidney which are essentially too small to characterize but favor cysts. No hydronephrosis. Normal caliber abdominal aorta. No retroperitoneal lymphadenopathy. The bladder is unremarkable. Prior hysterectomy. Colonic diverticulosis. No evidence for acute diverticulitis. Mild colonic wall thickening involving the transverse colon, descending co rubio, sigmoid colon, and rectum. The colon is stool-filled and slightly distended. No evidence for bow el obstruction. The appendix is not identified and likely surgically absent. IMPRESSION: 1. Mild thickening of the transverse colon and distal colon to the level of the rectum consistent wit h a nonspecific colitis. 2. No evidence of bowel obstruction. 3. Prior appendectomy. ACT 112: Negative or not required by law. Electronically signed by: Noble Dominguez M.D. 06/01/2022 7:47 AM
[2022-06-01] MEDS: ENOXAPARIN INJ 40 MG/0.4 ML SYR SQ SCH (09:17)
[2022-06-01] MEDS: carvediloL 6.25 MG TAB PO SCH ×2 (09:17→22:02)
[2022-06-01] MEDS: PIPERACILLIN/TAZOBACTAM 3.375 GM in DEXTROSE 5% 100 ML IV SCH ×2 (09:18→18:10)
[2022-06-01] MEDS: buPROPion XL 300 MG TABCR PO SCH (09:18)
[2022-06-01] MEDS: MIRABEGRON ER 25 MG TAB PO SCH (09:18)
[2022-06-01] MEDS: valACYclovir HCL 500 MG TABLET PO SCH (09:18)
[2022-06-01] MEDS: LOSARTAN POTASSIUM 50 MG TAB PO SCH ×2 (09:18→22:02)
[2022-06-01] MEDS: FLUTICASONE PROPIONATE NA SPR 16 GM BTL SCH (09:19)
[2022-06-01] MEDS: amLODIPine BESYLATE 5 MG TAB PO SCH (09:24)
[2022-06-01] MEDS: PANTOprazole 40 MG TAB PO SCH (09:24)
[2022-06-01] MEDS: ATORVASTATIN 40 MG TAB PO SCH (09:47)
[2022-06-01] MEDS: ASPIRIN 81 MG ECTAB PO SCH (09:50)
--- NOTE | 2022-06-01 14:07 | Hospitalist Progress Note ---
Date of Service June 01, 2022 Assessment & Plan (1) Colitis: Plan: Infectious vs ischemic vs IBD. Acute and associated with vomiting and diarrhea- favor infectious vs ischemic. Greatly improved with abx suggests infectious component. She is improved. GI consulted and recommending outpatient scope in 4-6 weeks when acute inflammation has subsided. Cont abx, dicyclomine PRN cramping. Advance diet as tolerated. (2) HTN (hypertension): Plan: Chronic, stable and at goal. Cont amlodipine, coreg and losartan per home regimen. (3) GERD (gastroesophageal reflux disease): Plan: chronic, stable. Cont PPI per home regimen. (4) Anxiety: Plan: chronic, controlled. Cont Xanax PRN (5) DVT prophylaxis: Plan: Lovenox Full Code Dispo-to home when pain subsides and clinically improved. DO Desi Montejo Hospitalist Admission and Anticipated Discharge Date Admission Date: June 01, 2022 Subjective 76 yo F with h/o constipation managed with stool softeners and laxatives presents wtih 3 days of achy lower abdominal pain associated with nausea, emesis and diarrhea. Last antibiotics were two months ago. Stool studies have not been able to be collected yet. Today she feels improved on Zosyn. She still has significant abdominal pain and diarrhea but is ambulating around the room and is afebrile. She is now tolerating PO Denies chest pain, SOB or other issues at this time. Family is at bedside and updated Review of Systems Review of Systems: All systems were reviewed and negative except as indicated on subjective above. Physical Exam Physical Exam: CONSTITUTIONAL: WNWD, vitals as above, generally well- appearing, NAD EYES: normal conjunctivae, no scleral icterus ENT: external ear and nose normal, MMM NECK: trachea midline RESPIRATORY: clear to auscultation bilaterally, no crackles, rales or wheezes, normal respiratory effort CARDIOVASCULAR: regular rate and rhythm, S1 and 2 heard without murmurs, gallops or rubs, no JVD, no peripheral edema CHEST: inspection of chest was normal GASTROINTESTINAL: soft, TTP generalized (less pain in RLQ) ND, no guarding MUSCULOSKELETAL: strength 5/5 throughout, head is normocephalic and atraumatic, neck supple, normal palpation of chest wall without tenderness SKIN: warm and dry, no rashes NEUROLOGIC: CN 2-12 grossly intact, no sensory deficit, normal cognition, normal speech, no tremor PSYCHIATRIC: alert cooperative and oriented to person, place and time. Euthymic mood, makes good eye contact, language grossly intact, recent and remote memory grossly intact. Results & Data Results & Data ([facility]) Vital Signs (Past 12 Hours) Vital Signs Temp Pulse Resp BP Pulse Ox O2 Del Method 06/01/22 13:37 65 18 141/83 H 96 06/01/22 09:52 36.8 C 06/01/22 06:15 37.2 C 73 18 127/72 96 Room Air 06/01/22 02:31 74 16 146/88 H 95 Room Air Laboratory Results Short CBC 05/31/22 06/01/22 06/01/22 Range/Units 21:39 02:55 06:00 WBC 20.32 H 20.85 H 19.57 H (4.8-10.8) K/ul Hgb 13.1 12.6 12.9 (12.0-16.0) g/dl Hct 38.5 37.4 37.2 (34.1-44.9) % Plt Count 287 282 276 (130-400) K/uL BMP 05/31/22 06/01/22 06/01/22 21:39 00:58 06:00 Sodium 130 L 132 L Potassium TNP 3.7 3.8 Chloride 98 102 Carbon Dioxide 25 22 BUN 17 17 Creatinine 0.87 0.94 Glucose 131 H 134 H Calcium 9.1 8.3 L Liver Function 05/31/22 06/01/22 Range/Units 21:39 00:58 Total Bilirubin 0.9 (0.2-1.0) mg/dl AST TNP 18 ALT 15 (7-52) U/L Alkaline Phosphatase 90 (34-104) U/L Albumin 4.1 (3.4-5.0) gm/dl Urine 06/01/22 Range/Units 01:58 Urine Color Dark Yellow Urine Appearance Clear (Clear) Urine pH 6.0 (4.5-7.5) Ur Specific [place] > 1.045 H (1.000-1.030) Urine Protein Negative (Negative) Urine Glucose (UA) Negative (Negative) Diagnostic Findings Abdomen/Pelvis CT 05/31/22 21:[address] WITH IV CONTRAST CT DOSE: 292.73 mGy.cm HISTORY: Generalized abdominal pain. Vomiting. TECHNIQUE: Multiaxial CT images of the abdomen and pelvis were performed following the use of intravenous contrast. A dose lowering technique was utilized adhering to the principles of ALARA. COMPARISON STUDY: Abdomen and pelvis CT 10/28/2016. FINDINGS: The lung bases are clear. No pneumoperitoneum. No pneumatosis. No fractures within the visualized osseous structures. The heart is borderline enlarged. A 3 mm hypodense lesion within the right hepatic lobe. This is technically too small to characterize. Stable subtle 1.2 cm hypodense focus within the liver adjacent to the IVC. This could represent focal fat or hemangioma. The main portal vein is patent. The gallbladder, pancreas, spleen, adrenal glands, and left kidney are unremarkable. There are few subcentimeter hypodense lesions within the right kidney which are essentially too small to characterize but favor cysts. No hydronephrosis. Normal caliber abdominal aorta. No retroperitoneal lymphadenopathy. The bladder is unremarkable. Prior hysterectomy. Colonic diverticulosis. No evidence for acute diverticulitis. Mild colonic wall thickening involving the transverse colon, descending colon, sigmoid colon, and rectum. The colon is stool-filled and slightly distended. No evidence for bowel obstruction. The appendix is not identified and likely surgically absent. IMPRESSION: 1. Mild thickening of the transverse colon and distal colon to the level of the rectum consistent with a nonspecific colitis. 2. No evidence of bowel obstruction. 3. Prior appendectomy. ACT 112: Negative or not required by law. Electronically signed by: Noble Dominguez M.D. 06/01/2022 7:47 AM
--- NOTE | 2022-06-01 14:45 | Gastrointestinal Consultation ---
Date of Consultation June 01, 2022 Assessment & Plan (1) Colitis: Pt is a 76 yo female w prior constipation, took some laxatives now presented w profuse diarrhea wo s/s of GI bleeding. CT abd/pelvis w non specific colitis on transverse colon to distal colon at level of rectum. Hx of Cdiff and her last antibx use was in March for UTI. DDx: infectious colitis, ischemic colitis, less likely IBD - Check stool cx, Cdiff - IV Cipro/Flagyl - Advance diet as tolerated - Dicyclomine 10mg BID prn cramping - Needs OP colonoscopy eval in 4 to 6 week's time - Pls recall GI prn over the weekend Supervising Physician Co-Signing Physician Notes I performed a history and physical examination of the patient today, including specifically on physical exam - soft abdomen. I have discussed the patient's management with the advanced practitioner. Please refer to the nurse practitioner's note for the documented findings and plan of care. Patient with chronic constipation, took Senna and developed diarrhea hence presented to the hospital , CT scan with left sided colitis. Recommend: Stool work up. Colonoscopy as OP. Daily Metamucil + Miralax. Recall GI as needed. History of Present Illness Reason for Consultation: Colitis Requesting Physician: Dr. Meredith Mo Attending Physician: Dr. Jessenia Hammer History of Present Illness Pt is a 76 yo female w PMHx of hypertension, hyperlipidemia IBS, GERD, anx iety/mood disorders, hypothyroidism, HSV on Valtrex prophylaxis, diverticulosis, history C. difficile, prediabetes, who presented to ED w c/o abd pain and diarrhea. She felt constipated Wed, took Dulcolax that day and then Senna yesterday. Started having diarrhea last evening, with urgency. Also had an episode of n/v. Denies s/s of GI bleeding. Denies fever, chills. Does have abd discomfort mostly across lower abd areas. She had UTI requiring antibx in March. No travels, undercooked/raw foods, no well water. Recalled syncopal episode in March due to HTN crisis. Currently on 3 anti hypertensive. Labs w leukocytosis, normal chem panel, LFTs and lipase. CT abd/pelvis w contrast showed mild thickening of the transverse colon and distal colon to the level of the rectum consistent with a nonspecific colitis. No evidence of bowel obstruction. Mother w hx of colon ca in 70s. Her EGD and colonoscopy in 2017 showed hiatal hernia, adenomatous colon polyps and diverticulosis in sigmodi colon area. Allergies Allergy/AdvReac Type Severity Reaction Status Date / Time codeine AdvReac Unknown NAUSEA Verified 12/02/18 09:43 Home Medications Medication Instructions Recorded Confirmed Type alprazolam 1 mg tablet 0.5 mg PO HS ##0 06/12/11 06/01/22 History aspirin 81 mg tablet,delayed 81 mg PO QAM 08/20/18 06/01/22 History release (Rosemary Low Dose Aspirin) trazodone 50 mg tablet 100 mg PO HS 10/22/18 06/01/22 History bupropion HCl 300 mg 24 hr tablet, 300 mg PO DAILY 10/06/19 06/01/22 History extended release conjugated estrogens 0.625 mg/gram 0.625 mg vaginal DAILY 10/06/19 06/01/22 History vaginal cream (Premarin) losartan 25 mg tablet 50 mg PO BID 10/06/19 06/01/22 History mirabegron 50 mg tablet,extended 50 mg PO DAILY 10/06/19 06/01/22 History release 24 hr (Myrbetriq) Pataday 1 drp OPB DAILY 06/01/22 06/01/22 History Valtrex 500 mg PO DAILY 06/01/22 06/01/22 History amlodipine 5 mg tablet 5 mg PO 1XD 06/01/22 06/01/22 History atorvastatin 40 mg tablet 40 mg PO ONCE HS 06/01/22 06/01/22 History carvedilol 6.25 mg tablet 6.25 mg PO 1XD 06/01/22 06/01/22 History fluticasone propionate 50 mcg intranasal (ALT) BID 06/01/22 06/01/22 History meloxicam 15 mg tablet 15 mg PO DAILY 06/01/22 06/01/22 History montelukast 10 mg PO DAILY 06/01/22 06/01/22 History pantoprazole 40 mg tablet,delayed 40 mg PO 1XD 06/01/22 06/01/22 History release Patient History Medical History (Updated 06/01/22 @ 04:19 by Margarita Andrade DO) Anxiety Colitis Depression GERD (gastroesophageal reflux disease) HTN (hypertension) Osteoarthritis Surgical History Cataract extraction status of right eye History of total abdominal hysterectomy and bilateral salpingo-oophorectomy repair of bladder History of total knee replacement right Hx of colonoscopy Hx of tubal ligation Family History Father Family history of diabetes mellitus Social History Smoking Status: Never smoker Second Hand Exposure: No; Hx Alcohol Use: No Hx Substance Use: No Preferred Language: Nigerien Communication Ability: Effective Pain Management Nurse Practitioner Required: No Beliefs That Will Affect Care: None Current Living Situation: Alone Feels Safe at Home: Yes Safety Concerns: Feels Safe At This Time Assistive Devices: Glasses Review of Systems Review of Systems: All systems reviewed & are unremarkable except as noted in HPI & below Physical Exam Constitutional: WD/WN, vitals as above well groomed, cooperative and comfortable Eyes: PERRL, conjunctivae normal, anicteric sclerae ENMT: external ear and nose normal, oropharynx normal Respiratory: normal respiratory effort, lungs clear to auscultation Cardiovascular: RRR, no murmur, no edema Gastrointestinal (Abdomen): TTP LLQ and across lower abd , BS present, soft Skin: no rashes, warm and dry no jaundice Psychiatric: A+Ox3, euthymic affect Lymphatic: no lymphedema Results & Data ([facility]) Vital Signs (Past 12 Hours) Vital Signs Temp Pulse Resp BP Pulse Ox O2 Del Method 06/01/22 13:37 65 18 141/83 H 96 06/01/22 09:52 36.8 C 06/01/22 06:15 37.2 C 73 18 127/72 96 Room Air
[2022-06-01] MEDS ORDERED: DICYCLOMINE HCL 10 MG CAP PO PRN (16:58)
[2022-06-01 18:49] LABS: Adenovirus F 40/41 PCR Not Detected (NotDetected); Astrovirus PCR Not Detected (NotDetected); Campylobacter PCR Not Detected (NotDetected); Cryptosporidium PCR Not Detected (NotDetected); Cyclospora cayetanensis PCR Not Detected (NotDetected); Entamoeba histolytica PCR Not Detected (NotDetected); Enteroaggregative E.coli(EAEC) Not Detected (NotDetected); Enteropathogenic E.coli (EPEC) Not Detected (NotDetected); Enterotoxigenic E.coli (ETEC) Not Detected (NotDetected); Giardia lamblia PCR Not Detected (NotDetected); Norovirus GI/GII PCR Not Detected (NotDetected); Plesiomonas shigelloides PCR Not Detected (NotDetected); Rotavirus A PCR Not Detected (NotDetected); Salmonella PCR Not Detected (NotDetected); Sapovirus PCR Not Detected (NotDetected); Shiga-like Toxin E.coli (STEC) Not Detected (NotDetected); Shigella/Enteroinvasive E.coli Not Detected (NotDetected); Vibrio cholerae PCR Not Detected (NotDetected); Vibrio species PCR Not Detected (NotDetected); Yersinia enterocolitica PCR Not Detected (NotDetected)
[2022-06-01 19:41] LABS: Cdiff Antigen Positive; Cdiff Toxin A+B Negative Cdiff Toxin (Negative)
[2022-06-01] MEDS ORDERED: MONTELUKAST SODIUM 10 MG TABLET PO SCH (21:00)
--- NOTE | 2022-06-01 21:07 | Electrocardiogram Report ---
Test Reason : Blood Pressure : / mmHG Vent. Rate : 078 BPM Atrial Rate : 078 BPM P-R Int : 184 ms QRS Dur : 096 ms QT Int : 410 ms P-R-T Axes : -27 029 097 degrees QTc Int : 467 ms Poor data quality, interpretation may be adversely affected Normal sinus rhythm Nonspecific T wave abnormality Abnormal ECG When compared with ECG of 20-AUG-2018 16:22, LA interval has decreased Vent. rate has increased BY [address] no longer elevated in Lateral leads Nonspecific T wave abnormality now evident in Lateral leads Confirmed by Monster Henderson ([id number]) on 06/01/2022 9:07:21 PM Referred By: REFERRED SELF Confirmed By:Monster Henderson
[2022-06-01] MEDS: traZODone HCL 100 MG TAB PO SCH (22:03)
[2022-06-01] MEDS: ALPRAZolam 0.5 MG TABLET PO PRN (22:10)
[2022-06-02] MEDS: PIPERACILLIN/TAZOBACTAM 3.375 GM in DEXTROSE 5% 100 ML IV SCH ×2 (01:03→08:59)
[2022-06-02 07:19] LABS: Basophils # (auto) 0.08 K/uL (0-0.2); Basophils % (auto) 1.1 %; Eosinophils # (auto) 0.69 K/uL (0-0.50); Eosinophils % (auto) 9.2 %; Hematocrit (blood only) 32.2 % (34.1-44.9); Hemoglobin 10.8 g/dl (12.0-16.0); Immature Granulocytes # (auto) 0.02 K/uL (0.00-0.02); Immature Granulocytes % (auto) 0.3 %; Lymphocytes # (auto) 1.35 K/uL (1.2-3.4); Mean Corpuscular Hemoglobin 34.5 pg (25.0-34.0); Mean Corpuscular Hgb Conc 33.5 g/dL (32.0-36.0); Mean Corpuscular Volume 102.9 fL (80.0-100.0); Mean Platelet Volume 10.2 fL (9.4-12.3); Monocytes # (auto) 0.45 K/uL (0.24-0.82); Neutrophils % (auto) 65.4 %; Platelet Count 251 K/uL (130-400); RDW Coefficient of Variation 12.4 % (11.5-14.5); RDW Standard Deviation 46.5 fL (36.4-46.3); Red Blood Count 3.13 M/uL (3.93-5.22); White Blood Count 7.49 K/ul (4.8-10.8)
[2022-06-02 07:53] LABS: BUN Creatinine Ratio 9.8 (10-20); Creatinine Clr Calc Pharmacy 47.5 ml/min; Est GFR (African American) 71.1 ml/min; Est GFR (Non-African American) 61.3 ml/min; Magnesium 1.9 mg/dl (1.7-2.4); Phosphorus 3.2 mg/dl (2.5-4.9); Potassium 3.5 mmol/L (3.5-5.1)
[2022-06-02] MEDS ORDERED: Nursing to Pharmacy Communication SCH (08:30)
[2022-06-02] MEDS: amLODIPine BESYLATE 5 MG TAB PO SCH (08:59)
[2022-06-02] MEDS: ATORVASTATIN 40 MG TAB PO SCH (08:59)
[2022-06-02] MEDS: buPROPion XL 300 MG TABCR PO SCH (09:00)
[2022-06-02] MEDS: LOSARTAN POTASSIUM 50 MG TAB PO SCH ×2 (09:00→21:23)
[2022-06-02] MEDS: carvediloL 6.25 MG TAB PO SCH ×2 (09:00→21:22)
[2022-06-02] MEDS: MIRABEGRON ER 25 MG TAB PO SCH (09:00)
[2022-06-02] MEDS: PANTOprazole 40 MG TAB PO SCH (09:00)
[2022-06-02] MEDS: FLUTICASONE PROPIONATE NA SPR 16 GM BTL SCH (09:00)
[2022-06-02] MEDS: ENOXAPARIN INJ 40 MG/0.4 ML SYR SQ SCH (09:00)
[2022-06-02] MEDS: valACYclovir HCL 500 MG TABLET PO SCH (09:00)
[2022-06-02] MEDS: MONTELUKAST SODIUM 10 MG TABLET PO SCH (09:05)
[2022-06-02] MEDS: ASPIRIN 81 MG ECTAB PO SCH (09:10)
--- NOTE | 2022-06-02 12:35 | Hospitalist Progress Note ---
Date of Service June 02, 2022 Assessment & Plan (1) Colitis: Plan: Infectious vs ischemic vs IBD. Acute and associated with vomiting and diarrhea- favor infectious vs ischemic. Greatly improved with abx suggests infectious component. She is improved. GI consulted and recommending outpatient scope in 4-6 weeks when acute inflammation has subsided. Cont abx, some nausea reported wtih Zosyn. Switching to short course of oral cipro/flagyl at this time. Dicyclomine PRN cramping. Advanced diet to reg food today and will monitor how she is tolerating this. Suspect moreso ischemic colitis with new information above where she had a food borne illness and had several episodes of vomiting prior to onset of abdominal pain. Especially in the setting of antihypertensive therapy. Desitin to rectum for comfort. (2) HTN (hypertension): Plan: Chronic, stable and at goal. Cont amlodipine, coreg and losartan per home regimen. (3) GERD (gastroesophageal reflux disease): Plan: chronic, stable. Cont PPI per home regimen. (4) Anxiety: Plan: chronic, controlled. Cont Xanax PRN (5) DVT prophylaxis: Plan: Lovenox Full Code Dispo-to home when pain subsides and clinically improved. Likely tomorrow as long as tolerating food. Meredith Mo DO [facility] Hospitalist Admission and Anticipated Discharge Date Admission Date: June 01, 2022 Subjective 76 yo F with h/o constipation managed with stool softeners and laxatives presents wtih 3 days of achy lower abdominal pain associated with nausea, emesis and diarrhea. Last antibiotics were two months ago. Stool studies were negative for infection. today she offers that she had some bad [place] food and started vomiting on several times. This may have caused some dehydration and set her up for ischemic bowel, sridhar in setting of antihypertensive medications. today she is tolerating PO with still some abdominal pain and episodes of loose stool. No blood per rectum. Stools are becoming more formed. Review of Systems Review of Systems: All systems were reviewed and negative except as indicated on subjective above. Physical Exam Physical Exam: CONSTITUTIONAL: WNWD, vitals as above, generally well- appearing, NAD EYES: normal conjunctivae, no scleral icterus ENT: external ear and nose normal, MMM NECK: trachea midline RESPIRATORY: clear to auscultation bilaterally, no crackles, rales or wheezes, normal respiratory effort CARDIOVASCULAR: regular rate and rhythm, S1 and 2 heard without murmurs, gallops or rubs, no JVD, no peripheral edema CHEST: inspection of chest was normal GASTROINTESTINAL: soft, TTP RLQ, improved in other locations on abdomne, ND, no guarding MUSCULOSKELETAL: strength 5/5 throughout, head is normocephalic and atraumatic, neck supple, normal palpation of chest wall without tenderness SKIN: warm and dry, no rashes NEUROLOGIC: CN 2-12 grossly intact, no sensory deficit, normal cognition, normal speech, no tremor PSYCHIATRIC: alert cooperative and oriented to person, place and time. Euthymic mood, makes good eye contact, language grossly intact, recent and remote memory grossly intact. Results & Data Results & Data ([facility]) Vital Signs (Past 12 Hours) Vital Signs Temp Pulse Resp BP Pulse Ox O2 Del Method 06/02/22 07:35 36.7 C 64 18 130/76 94 Room Air Laboratory Results Short CBC 06/02/22 Range/Units 06:34 WBC 7.49 (4.8-10.8) K/ul Hgb 10.8 L (12.0-16.0) g/dl Hct 32.2 L (34.1-44.9) % Plt Count 251 (130-400) K/uL BMP 06/02/22 06:34 Sodium 136 Potassium 3.5 Chloride 105 Carbon Dioxide 26 BUN 9 Creatinine 0.92 Glucose 84 Calcium 8.0 L Medications Administered Current Inpatient Medications Acetaminophen (Acetaminophen 325 Mg Tab) 650 mg PO Q6H PRN PRN Reason: Fever/mild pain Stop: 07/01/22 06:53 Alprazolam (Alprazolam 0.5 Mg Tablet) 0.5 mg PO BID PRN PRN Reason: Anxiety Stop: 07/01/22 06:53 Last Admin: 06/01/22 22:10 Dose: 0.5 mg Amlodipine Besylate (Amlodipine Besylate 5 Mg Tab) 5 mg PO [facility] Stop: 07/01/22 08:59 Last Admin: 06/02/22 08:59 Dose: 5 mg Aspirin (Aspirin 81 Mg Ectab) 81 mg PO [facility] Stop: 07/01/22 08:59 Last Admin: 06/02/22 09:10 Dose: 81 mg Atorvastatin Calcium (Atorvastatin 40 Mg Tab) 40 mg PO [facility] Stop: 07/01/22 08:59 Last Admin: 06/02/22 08:59 Dose: 40 mg Bupropion HCl (Bupropion Xl 300 Mg Tabcr) 300 mg PO QAM [facility] Stop: 07/01/22 08:59 Last Admin: 06/02/22 09:00 Dose: 300 mg Carvedilol (Carvedilol 6.25 Mg Tab) 6.25 mg PO BID [facility] Stop: 07/01/22 08:59 Last Admin: 06/02/22 09:00 Dose: 6.25 mg Ciprofloxacin (Ciprofloxacin 500 Mg Tab) 500 mg PO BID [facility] Stop: 06/12/22 20:59 Dicyclomine HCl (Dicyclomine Hcl 10 Mg Cap) 10 mg PO BID PRN PRN Reason: cramping Stop: 07/01/22 20:59 Enoxaparin Sodium (Enoxaparin Inj 40 Mg/0.4 Ml Syr) 40 mg SQ QAM [facility] Stop: 07/01/22 08:59 Last Admin: 06/02/22 09:00 Dose: 40 mg Fluticasone Propionate (Fluticasone Propionate Na Spr 16 Gm Btl) 2 sprays NA DAILY [facility] Stop: 07/01/22 08:59 Last Admin: 06/02/22 09:00 Dose: 2 sprays Promethazine HCl 12.5 mg/ (Sodium Chloride) 50.5 mls @ 202 mls/hr IV Q6H PRN PRN Reason: Nausea And Vomiting Stop: 07/01/22 06:53 Losartan Potassium (Losartan Potassium 50 Mg Tab) 50 mg PO BID [facility] Stop: 07/01/22 08:59 Last Admin: 06/02/22 09:00 Dose: 50 mg Metronidazole (Metronidazole 500 Mg Tab) 500 mg PO Q8 [facility] Stop: 06/12/22 12:29 Mirabegron (Mirabegron Er 25 Mg Tab) 50 mg PO DAILY [facility] Stop: 07/01/22 08:59 Last Admin: 06/02/22 09:00 Dose: 50 mg Miscellaneous (Pataday: Order Awaiting Action) 1 each N/A QS [facility] Stop: 07/01/22 07:59 Last Admin: 06/02/22 07:39 Dose: Not Given Montelukast Sodium (Montelukast Sodium 10 Mg Tablet) 10 mg PO DAILY [facility] Stop: 07/02/22 08:59 Last Admin: 06/02/22 09:05 Dose: 10 mg Pantoprazole Sodium (Pantoprazole 40 Mg Tab) 40 mg PO DAILY [facility] Stop: 07/01/22 08:59 Last Admin: 06/02/22 09:00 Dose: 40 mg Petrolatum (Butt Paste (Zinc Oxide 16%) 171 Appln/57 Gm Jar) 1 appln EXT BID [facility] Stop: 07/02/22 12:14 Trazodone HCl (Trazodone Hcl 100 Mg Tab) 100 mg PO HS [facility] Stop: 07/01/22 20:59 Last Admin: 06/01/22 22:03 Dose: 100 mg Valacyclovir HCl (Valacyclovir Hcl 500 Mg Tablet) 500 mg PO DAILY [facility] Stop: 07/01/22 08:59 Last Admin: 06/02/22 09:00 Dose: 500 mg
[2022-06-02] MEDS: BUTT PASTE (ZINC OXIDE 16%) 171 APPLN/57 GM JAR EXT SCH ×2 (12:50→21:24)
[2022-06-02] MEDS: metroNIDAZOLE 500 MG TAB PO SCH ×2 (12:50→21:24)
[2022-06-02] MEDS: ALPRAZolam 0.5 MG TABLET PO PRN (21:21)
[2022-06-02] MEDS: CIPROFLOXACIN 500 MG TAB PO SCH (21:22)
[2022-06-02] MEDS: traZODone HCL 100 MG TAB PO SCH (21:24)
[2022-06-03] MEDS: metroNIDAZOLE 500 MG TAB PO SCH (05:25)
[2022-06-03 07:02] LABS: Hematocrit (blood only) 33.2 % (34.1-44.9); Hemoglobin 11.1 g/dl (12.0-16.0); Mean Corpuscular Hemoglobin 34.5 pg (25.0-34.0); Mean Corpuscular Hgb Conc 33.4 g/dL (32.0-36.0); Mean Corpuscular Volume 103.1 fL (80.0-100.0); Mean Platelet Volume 9.8 fL (9.4-12.3); Platelet Count 243 K/uL (130-400); RDW Coefficient of Variation 12.2 % (11.5-14.5); RDW Standard Deviation 46.5 fL (36.4-46.3); Red Blood Count 3.22 M/uL (3.93-5.22); White Blood Count 5.64 K/ul (4.8-10.8)
[2022-06-03 07:48] LABS: BUN Creatinine Ratio 10.3 (10-20); Calcium 8.2 mg/dl (8.5-10.1); Creatinine Clr Calc Pharmacy 56.1 ml/min; Est GFR (African American) 86.8 ml/min; Est GFR (Non-African American) 74.9 ml/min; Magnesium 1.8 mg/dl (1.7-2.4); Potassium 3.6 mmol/L (3.5-5.1)
[2022-06-03] MEDS: ASPIRIN 81 MG ECTAB PO SCH (08:21)
[2022-06-03] MEDS: buPROPion XL 300 MG TABCR PO SCH (08:21)
[2022-06-03] MEDS: MIRABEGRON ER 25 MG TAB PO SCH (08:21)
[2022-06-03] MEDS: LOSARTAN POTASSIUM 50 MG TAB PO SCH (08:21)
[2022-06-03] MEDS: amLODIPine BESYLATE 5 MG TAB PO SCH (08:22)
[2022-06-03] MEDS: carvediloL 6.25 MG TAB PO SCH (08:22)
[2022-06-03] MEDS: valACYclovir HCL 500 MG TABLET PO SCH (08:23)
[2022-06-03] MEDS: CIPROFLOXACIN 500 MG TAB PO SCH (08:23)
[2022-06-03] MEDS: PANTOprazole 40 MG TAB PO SCH (08:23)
[2022-06-03] MEDS: ATORVASTATIN 40 MG TAB PO SCH (08:23)
[2022-06-03] MEDS: ENOXAPARIN INJ 40 MG/0.4 ML SYR SQ SCH (08:24)
[2022-06-03] MEDS: MONTELUKAST SODIUM 10 MG TABLET PO SCH (08:24)
[2022-06-03] MEDS: FLUTICASONE PROPIONATE NA SPR 16 GM BTL SCH (08:24)
[2022-06-03] MEDS: BUTT PASTE (ZINC OXIDE 16%) 171 APPLN/57 GM JAR EXT SCH (08:24)
--- NOTE | 2022-06-03 14:35 | Discharge Summary ---
Date of Service June 03, 2022 Admission HPI Per Admitting Provider History obtained from patient and records. Medical history significant for hypertension, hyperlipidemia IBS, GERD, anxiety/mood disorders, hypothyroidism, HSV on Valtrex prophylaxis, diverticulosis, history C. difficile, prediabetes. 3 days history of achy lower abdominal pain more on the right associated with nausea, emesis. No fever, no chills. Initial constipation followed by watery stools after laxative intake. Patient denies chest pain, SOB. Recent Bactrim course for UTI 2 months ago. IV Zosyn administered at the ER. 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 Admission Exam Per Admitting Provider GENERAL: Comfortable, slightly anxious, pleasant, no respiratory distress SKIN: Normal color, warm HEENT: [place] palpebral conjunctivae, no ptosis, dry buccal mucosa NECK : Supple, no tenderness CHEST : CTA, no tenderness HEART : RRR, no obvious murmurs ABDOMEN: Some distention, epigastric tenderness EXTREMITIES : Minimal LE swelling, no LE tenderness, no other conspicuous deformities noted NEUROLOGIC : Coherent, no facial asymmetry, no other gross focality Principal Diagnosis Colitis Discharge Exam Constitutional WD/WN, vitals as above Respiratory normal respiratory effort, lungs clear to auscultation Cardiovascular Rate/Rhythm: regular rate and regular rhythm Extremities: no edema Gastrointestinal (Abdomen) normal bowel sounds, soft, nontender, no hepatosplenomegaly Skin no rashes, warm and dry Neurologic no focal motor deficits Psychiatric A+Ox3, euthymic affect Discharge Data Allergies Allergy/AdvReac Type Severity Reaction Status Date / Time codeine AdvReac Unknown NAUSEA Verified 12/02/18 09:43 Consultations 06/01/22 14:05 Consult Gastroenterology Routine Ordered Studies Laboratory Results WBC 5.64 K/ul (4.8-10.8) 06/03/22 06:41 RBC 3.22 M/uL (3.93-5.22) L 06/03/22 06:41 Hgb 11.1 g/dl (12.0-16.0) L 06/03/22 06:41 Hct 33.2 % (34.1-44.9) L 06/03/22 06:41 MCV 103.1 fL (80.0-100.0) H 06/03/22 06:41 MCH 34.5 pg (25.0-34.0) H 06/03/22 06:41 MCHC 33.4 g/dL (32.0-36.0) 06/03/22 06:41 RDW Std Deviation 46.5 fL (36.4-46.3) H 06/03/22 06:41 RDW Coeff of Hollis 12.2 % (11.5-14.5) 06/03/22 06:41 Plt Count 243 K/uL (130-400) 06/03/22 06:41 MPV 9.8 fL (9.4-12.3) 06/03/22 06:41 Immature Gran % (Auto) 0.3 % 06/02/22 06:34 Neut % (Auto) 65.4 % 06/02/22 06:34 Lymph % (Auto) 18.0 % 06/02/22 06:34 [place]win % (Auto) 6.0 % 06/02/22 06:34 Eos % (Auto) 9.2 % 06/02/22 06:34 Baso % (Auto) 1.1 % 06/02/22 06:34 Neut # (Auto) 4.90 K/uL (1.4-6.5) 06/02/22 06:34 Lymph # (Auto) 1.35 K/uL (1.2-3.4) 06/02/22 06:34 Irwin # (Auto) 0.45 K/uL (0.24-0.82) 06/02/22 06:34 Eos # (Auto) 0.69 K/uL (0-0.50) H 06/02/22 06:34 Baso # (Auto) 0.08 K/uL (0-0.2) 06/02/22 06:34 Immature Gran # (Auto) 0.02 K/uL (0.00-0.02) 06/02/22 06:34 Sodium 139 mmol/L (136-145) 06/03/22 06:41 Potassium 3.6 mmol/L (3.5-5.1) 06/03/22 06:41 Chloride 108 mmol/L (98-107) H 06/03/22 06:41 Carbon Dioxide 25 mmol/L (21-32) 06/03/22 06:41 Anion Gap 6 (3-11) 06/03/22 06:41 BUN 8 mg/dl (6-23) 06/03/22 06:41 Creatinine 0.78 mg/dl (0.6-1.2) 06/03/22 06:41 Est Cr Clr Drug Dosing 56.1 ml/min 06/03/22 06:41 Est GFR ( Amer) 86.8 ml/min 06/03/22 06:41 Est GFR (Non-Af Amer) 74.9 ml/min 06/03/22 06:41 BUN/Creatinine Ratio 10.3 (10-20) 06/03/22 06:41 Glucose 86 mg/dl (70-99(Fasting)) 06/03/22 06:41 Lactate 0.7 mmol/L (0.4-2.0) 06/01/22 06:00 Calcium 8.2 mg/dl (8.5-10.1) L 06/03/22 06:41 Phosphorus 3.2 mg/dl (2.5-4.9) 06/02/22 06:34 Magnesium 1.8 mg/dl (1.7-2.4) 06/03/22 06:41 Total Bilirubin 0.9 mg/dl (0.2-1.0) 05/31/22 21:39 AST 18 U/L (13-39) 06/01/22 00:58 ALT 15 U/L (7-52) 05/31/22 21:39 Alkaline Phosphatase 90 U/L (34-104) 05/31/22 21:39 Total Protein 7.4 gm/dl (6.0-8.3) 05/31/22 21:39 Albumin 4.1 gm/dl (3.4-5.0) 05/31/22 21:39 Globulin 3.3 gm/dl (2.5-4.0) 05/31/22 21:39 Albumin/Globulin Ratio 1.2 (0.9-2) 05/31/22 21:39 Lipase 28 U/L (11-82) 05/31/22 21:39 Procalcitonin 0.86 ng/ml (0-0.5) H 06/01/22 02:55 TSH 0.614 uIu/ml (0.300-4.500) 06/01/22 06:00 Urine Color Dark Yellow 06/01/22 01:58 Urine Appearance Clear (Clear) 06/01/22 01:58 Urine pH 6.0 (4.5-7.5) 06/01/22 01:58 Ur Specific [place] > 1.045 (1.000-1.030) H 06/01/22 01:58 Urine Protein Negative (Negative) 06/01/22 01:58 Urine Glucose (UA) Negative (Negative) 06/01/22 01:58 Urine Ketones Trace (Negative) H 06/01/22 01:58 Urine Blood Negative (Negative) 06/01/22 01:58 Urine Nitrite Negative (Negative) 06/01/22 01:58 Urine Bilirubin 1+ (Negative) H 06/01/22 01:58 Urine Urobilinogen Negative (Negative) 06/01/22 01:58 Ur Leukocyte Esterase Negative (Negative) 06/01/22 01:58 Stl C. cayetanensis PCR Not Detected (NotDetected) 06/01/22 17:15 Stool Rotavirus A PCR Not Detected (NotDetected) 06/01/22 17:15 Stl Adenov F 40/41 PCR Not Detected (NotDetected) 06/01/22 17:15 Stool Astrovirus (PCR) Not Detected (NotDetected) 06/01/22 17:15 Stool Campylobacter PCR Not Detected (NotDetected) 06/01/22 17:15 Stl C. diff Tox B Gene Cancelled 06/01/22 17:15 Stl C.difficile Tox A&B Negative Cdiff Toxin (Negative) 06/01/22 17:15 Stl C. diff Tox A/B PCR C.diff Gene Detected (NotDetected) A 06/01/22 17:15 Stool Cryptosporidium PCR Not Detected (NotDetected) 06/01/22 17:15 Stl E.coli Shiga Tox PCR Not Detected (NotDetected) 06/01/22 17:15 Stl Enterotoxigenic E PCR Not Detected (NotDetected) 06/01/22 17:15 Stool EPEC (PCR) Not Detected (NotDetected) 06/01/22 17:15 Stool EAEC (PCR) Not Detected (NotDetected) 06/01/22 17:15 Stl E. histolytica PCR Not Detected (NotDetected) 06/01/22 17:15 Stool Giardia Lamblia PCR Not Detected (NotDetected) 06/01/22 17:15 Stool Salmonella PCR Not Detected (NotDetected) 06/01/22 17:15 Stool Sapovirus (PCR) Not Detected (NotDetected) 06/01/22 17:15 Stl P. shigelloides PCR Not Detected (NotDetected) 06/01/22 17:15 Stl Shigella/EIEC PCR Not Detected (NotDetected) 06/01/22 17:15 St Y.enterocolitica PCR Not Detected (NotDetected) 06/01/22 17:15 Stool Vibrio (PCR) Not Detected (NotDetected) 06/01/22 17:15 Stl Vibrio cholerae PCR Not Detected (NotDetected) 06/01/22 17:15 Stl Norovirus GI/GII PCR Not Detected (NotDetected) 06/01/22 17:15 SARS-CoV-2, RNA, NAAT NEGATIVE (NEGATIVE) 06/01/22 04:43 Impressions Abdomen/Pelvis CT 05/31/22 21:[address] WITH IV CONTRAST CT DOSE: 292.73 mGy.cm HISTORY: Generalized abdominal pain. Vomiting. TECHNIQUE: Multiaxial CT images of the abdomen and pelvis were performed following the use of intravenous contrast. A dose lowering technique was utilized adhering to the principles of ALARA. COMPARISON STUDY: Abdomen and pelvis CT 10/28/2016. FINDINGS: The lung bases are clear. No pneumoperitoneum. No pneumatosis. No fractures within the visualized osseous structures. The heart is borderline enlarged. A 3 mm hypodense lesion within the right hepatic lobe. This is technically too small to characterize. Stable subtle 1.2 cm hypodense focus within the liver adjacent to the IVC. This could represent focal fat or hemangioma. The main portal vein is patent. The gallbladder, pancreas, spleen, adrenal glands, and left kidney are unremarkable. There are few subcentimeter hypodense lesions within the right kidney which are essentially too small to characterize but favor cysts. No hydronephrosis. Normal caliber abdominal aorta. No retroperitoneal lymphadenopathy. The bladder is unremarkable. Prior hysterectomy. Colonic diverticulosis. No evidence for acute diverticulitis. Mild colonic wall thickening involving the transverse colon, descending colon, sigmoid colon, and rectum. The colon is stool-filled and slightly distended. No evidence for bowel obstruction. The appendix is not identified and likely surgically absent. IMPRESSION: 1. Mild thickening of the transverse colon and distal colon to the level of the rectum consistent with a nonspecific colitis. 2. No evidence of bowel obstruction. 3. Prior appendectomy. ACT 112: Negative or not required by law. Electronically signed by: Noble Dominguez M.D. 06/01/2022 7:47 AM Hospital Course (1) Colitis: Infectious vs ischemic vs IBD. Started on IV Zosyn which was changed to PO Cipro/Flagyl due to nausea. Had a great improvement with antibiotics. Stool PCR negative. C. difficile gene positive however toxin negative. GI consulted and recommending outpatient colonoscopy in 4 to 6 weeks. Patient's diet was advanced which she was tolerating on the day of discharge Continue Cipro and Flagyl to complete 7 days of treatment. Dicyclomine as needed for abdominal pain Started probiotic at discharge. (2) HTN (hypertension): BP remained stable throughout admission, patient was continued on her home regimen of amlodipine, Coreg, losartan (3) GERD (gastroesophageal reflux disease): Continue PPI Total Time Total Time Spent Total Time Spent (In Minutes): 35 Discharge Plan Discharge Items Patient Disposition: Home - Self-Care Reason For Visit: Abdominal Pain, Diarrhea Discharge Diagnosis: Colitis Activity: Resume your previous activity Non-emergency contact: Primary Care Provider Call non-emergency contact if: you have any medication questions, your symptoms worsen, your pain is not controlled and you have a fever Follow-up/Referrals: Raman Elder DO [Primary Care Provider] - None (You will be contacted to schedule a follow up appointment within 7 days. ) Jessenia Hammer MD [Physician] - (Colonoscopy in 4-6 weeks. You will be contacted to schedule. ) Diet: Heart Healthy Diet Comment: Continue a bland diet over the next few days Addtl Attending Provider Instructions: You came to the hospital for evaluation of abdominal pain and diarrhea. CT scan of your abdomen showed signs of colitis (inflammation/infection of your colon). You were started on antibiotics with improvement in your symptoms. You will continue to take ciprofloxacin 500mg twice daily and metronidazole 500mg every 8 hours for the next 5 days. It is very important to avoid all alcohol while taking metronidazole. A probiotic also has been sent to the pharmacy for you to take while on antibiotics. Dicyclomine (Bentyl) has been prescribed for you to take as needed for abdominal pain. Hold your home medication, meloxicam, until you have fully recovered. Your PCP can advise you when to resume. You were seen by the GI doctor and will need an outpatient colonoscopy in 4 to 6 weeks. The office will be in contact with you to get this scheduled. You also need to follow-up with your primary care doctor within 7 days. The office will contact you for follow-up appointment. It was a pleasure taking care of you. If you need to reach a member of the [facility] Hospitalist team at [facility], please call [phone]. EDWAR Yu Pending Studies at Discharge: No Stand-Alone Forms: My [facility], Smoking Cessation Medications and DC Order Prescriptions: New metronidazole 500 mg Tablet 500 mg PO Q8 5 Days Qty: 15 0RF ciprofloxacin HCl 500 mg Tablet 500 mg PO BID 5 Days Qty: 10 0RF dicyclomine 10 mg Capsule 10 mg PO BID PRN (Reason: abdominal pain) Qty: 10 0RF Boudreauxs Butt Paste 16 % Ointment 1 applic EXT BID Qty: 57 0RF Lactobacillus acidoph-L.bulgar [Floranex] 1 million cell tablet 1 tab PO TID 5 Days Qty: 15 0RF Continued alprazolam 1 mg Tablet 0.5 mg PO HS Qty: 0 bupropion HCl 300 mg tablet extended release 24 hr 300 mg PO DAILY Myrbetriq 50 mg tablet extended release 24 hr 50 mg PO DAILY Premarin 0.625 mg/gram cream 0.625 mg vaginal DAILY aspirin [Rosemary Low Dose Aspirin] 81 mg Tablet,Delayed Release (Dr/Ec) 81 mg PO QAM trazodone 50 mg Tablet 100 mg PO HS atorvastatin 40 mg tablet 40 mg PO ONCE HS carvedilol 6.25 mg tablet 6.25 mg PO BID amlodipine 5 mg tablet 5 mg PO 1XD pantoprazole 40 mg tablet,delayed release (DR/EC) 40 mg PO 1XD Pataday 1 drp OPB DAILY Valtrex 500 mg PO DAILY fluticasone propionate 50 mcg intranasal (ALT) BID montelukast 10 mg PO DAILY losartan 50 mg tablet 50 mg PO BID Discontinued meloxicam 15 mg tablet 15 mg PO DAILY Discharge Orders: Discharge Order (Routine); Ordered 06/03/22 Ordered By: Melissa Garcia/Other Patient Handouts: Soft [place] Diet Dc Admission Data Admit Date/Time: 06/01/22 05:18 Attending Provider: Michael Myers Admit Provider: Monster Arechiga Primary Care Provider: Raman Elder Other Providers: Monster Arechiga ; Jessenia Hammer Other Interventions: Discharge Summary Assessment (RN) Last Done: 06/03/22 11:12 Supervising Physician Co-Signing Physician Notes delayed entry date of service noted above Attending Addendum: care coordinated with EDWAR Hammond please refer to her notes for full details, I agree with her notes patient seen and examined, records reviewed by myself as well on exam, patient resting in bed, comfortable not in distress no chest pain, dyspnea, palpitations, dizziness, abdominal pain ,nausea/vomiting diarrhea resolved no other symptoms diagnoses and plan of care as per EDWAR Hammond's notes Michael Myers MD
== END 2022-06-03 12:58 | disposition home or self-care (01) ==
LOC: ED 20:34 → SUATTDRO 06-01 05:18 → INTOOBSV 06-01 05:18 → EDINP 06-01 05:18 → 3W 06-01 06:58
DX: R19.7 Diarrhea, unspecified; Z79.82 Long term (current) use of aspirin; K21.9 Gastro-esophageal reflux disease without esophagitis; K59.00 Constipation, unspecified; K52.9 Noninfective gastroenteritis and colitis, unspecified; I10 Essential (primary) hypertension; Z79.899 Other long term (current) drug therapy